=== PATIENT | male | born 1985 | race Caucasian/White ===

== ENCOUNTER 2016-04-13 11:59 | Inpatient (IN) | payer OTHER ==
[~2016-04-13] VITALS: Ht 185.4 cm; Wt 100.9 kg
[~2016-04-13 11:59] MED LIST: ALPRAZOLAM0.5 MG PO; ALPRAZOLAM2 MG PO; AMOX TR-K CLV1 EAC3 PO; ASCORBIC ACID100 MG PO; ASPIR-LOW81 MG PO; ATIVAN1 MG PO; Amoxicillin PO; B-100 COMPLEX1 EACH PO; B-100 COMPLEX100 MG PO; BACLOFEN10 MG PO; BACLOFEN20 MG PO; BACTRIM,SEPT1 TABLET PO; BISAC-EVAC10 MG PR; CARISOPRODOL350 MG PO; CEFTIN250 MG; CEFTIN250 MG PO; CEFTIN500 MG PO; CHILD ASPIRIN81 M1 PO; CIALIS10 MG PO; CIPRO500 MG PO; CLEOCIN300 MG PO; COLACE100 MG PO; COUMADIN4 MG PO; COUMADIN5 MG PO; CRANBERRY400 M1 PO; CYMBALTA20 MG PO; CYMBALTA30 MG PO; CYMBALTA60 MG PO; Coumadin,Jantoven PO; DAILY VALUE1 EACH PO; DAILY VITAMIN1 EAC8 PO; DIAZEPAM10 MG PO; DIAZEPAM5 MG PO; DULCOLAX10 MG PR; DUONEB 2.5-0.5 M3 ML IH; Diflucan PO; Dulcolax PR; FAMOTIDINE20 MG PO; FUROSEMIDE20 MG PO; GABAPENTIN100 MG PO; GABAPENTIN300 MG PO; INVANZ1 GM IM; JANTOVEN5 MG PO; KEFLEX500 MG PO; LASIX20 MG PO; LASIX40 MG PO; LEVAQUIN500 MG PO; LEVAQUIN750 MG PO; LIORESAL10 MG PO; LOVENOX80 MG/0.8 SC; LYRICA100 MG PO; LYRICA200 MG PO; LYRICA50 MG PO; LYRICA75 MG PO; Lioresal PO; Lovenox SC; MACROBID100 MG PO; MEDROL DOSEPAK4 MG PO; METHADONE5 MG PO; MIRALAX17 GM PO; MUCINEX600 MG PO; MULTI VITAMIN1 EACH PO; MULTI-VITAMIN1 EAC4 PO; Miralax, Glycolax PO; NEURONTIN100 MG PO; NEURONTIN300 MG PO; NICOTINE PATCH1 EAC2 TD; NITROFURANTOIN100 MG PO; Neurontin PO; OXYCODONE HCL15 MG PO; OXYCODONE HCL30 MG PO; OXYCODONE HCL5 MG PO; OXYCODONE HCL80 MG PO; OXYCONTIN15 MG PO; OXYCONTIN30 MG PO; OXYCONTIN40 MG PO; OXYCONTIN80 MG PO; OxyCONTIN PO; PANTOPRAZOLE SO40 MG PO; PHARMACIST FAV1 EACH PO; POLYETHYLENE GL17 GM PO; PROAIR HFA8.5 GM IH; PROVENTIL,2.5 MG/0.5 AEROSOL; Protonix PO; ROXICODONE30 MG PO; SERTRALINE HCL25 MG PO; SERTRALINE HCL50 MG PO; SILVADENE,SSD,T20 GM TP; SILVADENE20 GM TP; SOMA250 MG PO; SOMA350 MG PO; TEARS NATURALE-15 ML BOTH EYES; TIZANIDINE HCL4 M1 PO; TRAZODONE HCL50 MG PO; Tobramycin IV; VALIUM10 MG PO; VIAGRA100 MG PO; VITAMIN C500 M1 PO; VITAMIN D-3 401 EACH PO; Valium PO; WARFARIN SODIUM4 MG PO; WARFARIN SODIUM5 MG PO; XANAX2 MG PO; Xanax PO; ZANAFLEX2 MG PO; ZANAFLEX4 MG PO; ZITHROMAX500 MG PO; ZOLOFT100 MG PO; ZOLOFT25 MG PO; ZOLOFT50 MG PO; ZYVOX600 MG PO; oxyCODONE PO
[2016-04-13 14:36] LABS: EOSINOPHIL (%) 0.8 % (0-5); EOSINOPHIL COUNT 0.1 K/uL (0-0.3); HEMATOCRIT 41.5 % (38.0-50.0); IMMATURE GRANULOCYTE (%) 0.3 % (0.0-0.7); IMMATURE GRANULOCYTE COUNT 0.2 K/uL; LYMPHOCYTE COUNT 1.6 K/uL (1.0-2.8); MCH 29.9 PG (29.0-34.0); MCV 90.6 FL (86-99); MEAN PLAT.VOLUME 11.2 uM^3 (9.0-12.4); MONOCYTE (%) 11.8 % (3-12); MONOCYTE COUNT 0.8 K/uL (0-0.8); NEUTROPHIL (%) 62.5 % (45-76); NEUTROPHIL COUNT 4.1 K/uL (1.8-6.4); PLATELET COUNT 165 K/uL (156-360); RBC DIS.WIDTH-CV 15.6 % (11.8-14.6); RBC DIS.WIDTH-SD 50.4 % (39-53); RED BLOOD COUNT 4.58 M/uL (4.00-5.50); WHITE BLOOD COUNT 6.5 K/uL (4.1-10.2)
[2016-04-13 14:45] LABS: CHLORIDE 101 mEq/L (99-109); POTASSIUM 3.3 mEq/L (3.7-5.4); SODIUM 137 mEq/L (136-147)
[2016-04-13 14:47] LABS: GLUCOSE 97 mg/dL (70-99)
[2016-04-13 14:48] LABS: ANION GAP 11 MEQ/L (2-14)
[2016-04-13 14:51] LABS: GFR ESTIMATE (CALCULATED) > 59 mL/min/
[2016-04-13 14:52] LABS: UREA NITROGEN (BUN) 9 mg/dL (9-23)
[2016-04-13 15:58] LABS: ADD MIUA? YES; BILIRUBIN NEGATIVE; BLOOD MODERATE; COLOR YELLOW ((YELLOW)); GLUCOSE (STRIP) NEGATIVE; KETONES NEGATIVE; LEUKOCYTES MODERATE; NITRITE POSITIVE; PROTEIN (STRIP) TRACE; SPECIFIC GRAVITY 1.017 (1.000-1.030)
[2016-04-13 16:52] LABS: INTER. NORMALIZED RATIO 1.7; PROTHROMBIN TIME 17.4 (9.2-11.2)
[2016-04-13 17:18] LABS: BACTERIA 3+; CASTS NONE SEEN /LPF; CRYSTALS PRESENT; EPITHELIAL CELLS RARE; MUCUS 1+; OTHER YEAST W/HYPHAE; UCUL ADDED? YES
[2016-04-13 17:19] LABS: CALCIUM OXALATE CRYSTALS RARE
[2016-04-13 20:00] VITALS: BP 133/85
[2016-04-13] MEDS ORDERED: DULCOLAX10 MG PR (20:06)
[2016-04-14] VITALS (7 sets, daily range): BP systolic 100–130; BP diastolic 57–88
[2016-04-14 04:24] LABS: HEMATOCRIT 40.3 % (38.0-50.0); MCH 29.7 PG (29.0-34.0); MEAN PLAT.VOLUME 12.2 uM^3 (9.0-12.4); PLATELET COUNT 186 K/uL (156-360); RBC DIS.WIDTH-CV 15.1 % (11.8-14.6); RBC DIS.WIDTH-SD 49.5 % (39-53); RED BLOOD COUNT 4.48 M/uL (4.00-5.50); WHITE BLOOD COUNT 8.4 K/uL (4.1-10.2)
[2016-04-14 04:32] LABS: INTER. NORMALIZED RATIO 1.6; PROTHROMBIN TIME 16.1 (9.2-11.2)
[2016-04-14 04:41] LABS: CHLORIDE 106 mEq/L (99-109); SODIUM 140 mEq/L (136-147)
[2016-04-14 04:42] LABS: GLUCOSE 124 mg/dL (70-99)
[2016-04-14 04:44] LABS: ANION GAP 12 MEQ/L (2-14); POTASSIUM 4.4 mEq/L (3.7-5.4)
[2016-04-14 04:46] LABS: GFR ESTIMATE (CALCULATED) > 59 mL/min/
[2016-04-14 04:47] LABS: UREA NITROGEN (BUN) 9 mg/dL (9-23)
[2016-04-14 20:56] LABS: POINT-OF-CARE METER ID UU14149398
[2016-04-15 04:11] VITALS: BP 98/60
[2016-04-15 04:17] LABS: EOSINOPHIL (%) 0 % (0-5); HEMATOCRIT 38.9 % (38.0-50.0); IMMATURE GRANULOCYTE (%) 0.3 % (0.0-0.7); IMMATURE GRANULOCYTE COUNT 0.2 K/uL; LYMPHOCYTE COUNT 0.7 K/uL (1.0-2.8); MCH 29.4 PG (29.0-34.0); MCHC 32.4 G/DL (30.0-36.0); MCV 90.7 FL (86-99); MEAN PLAT.VOLUME 11.5 uM^3 (9.0-12.4); MONOCYTE (%) 6.6 % (3-12); MONOCYTE COUNT 0.5 K/uL (0-0.8); NEUTROPHIL (%) 83.7 % (45-76); NEUTROPHIL COUNT 5.9 K/uL (1.8-6.4); PLATELET COUNT 182 K/uL (156-360); RBC DIS.WIDTH-CV 15.1 % (11.8-14.6); RBC DIS.WIDTH-SD 49.6 % (39-53); RED BLOOD COUNT 4.29 M/uL (4.00-5.50)
[2016-04-15 04:27] LABS: INTER. NORMALIZED RATIO 2.1; PROTHROMBIN TIME 22.4 (9.2-11.2)
[2016-04-15 04:34] LABS: CHLORIDE 108 mEq/L (99-109); POTASSIUM 3.6 mEq/L (3.7-5.4); SODIUM 141 mEq/L (136-147)
[2016-04-15 04:36] LABS: GLUCOSE 144 mg/dL (70-99)
[2016-04-15 04:38] LABS: ANION GAP 6 MEQ/L (2-14)
[2016-04-15 04:39] LABS: TOTAL BILIRUBIN 0.2 mg/dL (0.0-1.0)
[2016-04-15 04:40] LABS: ALKALINE PHOSPHATASE 141 IU/L (3-129); GFR ESTIMATE (CALCULATED) > 59 mL/min/
[2016-04-15 04:41] LABS: UREA NITROGEN (BUN) 10 mg/dL (9-23)
[2016-04-15 07:55] VITALS: BP 115/77
[2016-04-15 08:00] VITALS: BP 115/77
[2016-04-15 11:11] VITALS: BP 118/76
[2016-04-15 15:39] VITALS: BP 126/94
[2016-04-16] VITALS: BP 120/67
[2016-04-16 06:27] LABS: EOSINOPHIL (%) 0.1 % (0-5); HEMATOCRIT 37.1 % (38.0-50.0); IMMATURE GRANULOCYTE (%) 0.4 % (0.0-0.7); LYMPHOCYTE COUNT 2.4 K/uL (1.0-2.8); MCH 29.8 PG (29.0-34.0); MCHC 32.1 G/DL (30.0-36.0); MCV 92.8 FL (86-99); MEAN PLAT.VOLUME 11.8 uM^3 (9.0-12.4); MONOCYTE (%) 7.9 % (3-12); MONOCYTE COUNT 0.7 K/uL (0-0.8); NEUTROPHIL (%) 62.9 % (45-76); NEUTROPHIL COUNT 5.3 K/uL (1.8-6.4); PLATELET COUNT 196 K/uL (156-360); RBC DIS.WIDTH-CV 15.6 % (11.8-14.6); RBC DIS.WIDTH-SD 52.7 % (39-53); WHITE BLOOD COUNT 8.4 K/uL (4.1-10.2)
[2016-04-16 06:41] LABS: INTER. NORMALIZED RATIO 2.3; PROTHROMBIN TIME 24.5 (9.2-11.2)
[2016-04-16 07:11] LABS: ALKALINE PHOSPHATASE 123 IU/L (3-129); ANION GAP 12 MEQ/L (2-14); CHLORIDE 103 MEQ/L (99-109); GFR ESTIMATE (CALCULATED) > 59 mL/min/; POTASSIUM 4.2 MEQ/L (3.7-5.4); SAMPLE HEMOLYSIS CHECK 0; SAMPLE ICTERIC CHECK 0; SAMPLE LIPEMIA CHECK 0; SODIUM 144 MEQ/L (136-147); TOTAL BILIRUBIN 0.2 MG/DL (0.0-1.0); UREA NITROGEN (BUN) 10 mg/dL (9-23)
[2016-04-16 07:12] LABS: GLUCOSE 76 mg/dL (70-99)
[2016-04-16 07:42] VITALS: BP 132/91
[2016-04-16 15:20] VITALS: BP 124/72
[2016-04-17 00:35] VITALS: BP 131/72
[2016-04-17 06:45] LABS: INTER. NORMALIZED RATIO 1.8; PROTHROMBIN TIME 18.3 (9.2-11.2)
[2016-04-17 08:25] VITALS: BP 100/53
[2016-04-17 15:11] VITALS: BP 119/71
[2016-04-17 23:20] VITALS: BP 102/57
[2016-04-18 06:10] LABS: INTER. NORMALIZED RATIO 1.7; PROTHROMBIN TIME 17.6 (9.2-11.2)
[2016-04-18 08:04] VITALS: BP 90/54
[2016-04-18 16:20] VITALS: BP 123/56
[2016-04-19] VITALS: BP 96/67
[2016-04-19 07:29] LABS: INTER. NORMALIZED RATIO 1.6; PROTHROMBIN TIME 16.5 (9.2-11.2)
[2016-04-19 08:06] VITALS: BP 119/68
[2016-04-19 12:17] LABS: HIV-1/2 AB/AG COMBO Nonreactive
[2016-04-19 15:53] VITALS: BP 119/68
[2016-04-19 20:52] VITALS: BP 122/78
[2016-04-19 23:25] VITALS: BP 117/83
[2016-04-20 01:20] VITALS: BP 115/74
[2016-04-20 03:41] LABS: AMPHETAMINES QUANT VALUE 0 NG/ML; BARBITUATES QUANT VALUE 0 NG/ML; BENZODIAZEPINES, URINE SCREEN POSITIVE (200 ng/mL); PHENCYCLIDINE QUANT VALUE 0 NG/ML
[2016-04-20 07:02] LABS: INTER. NORMALIZED RATIO 1.6; PROTHROMBIN TIME 16.5 (9.2-11.2)
[2016-04-20 08:19] VITALS: BP 107/57
[2016-04-20 08:27] LABS: MCH 29.7 PG (29.0-34.0); MCHC 31.8 G/DL (30.0-36.0); MCV 93.4 FL (86-99); MEAN PLAT.VOLUME 11.4 uM^3 (9.0-12.4); PLATELET COUNT 250 K/uL (156-360); RBC DIS.WIDTH-CV 15.7 % (11.8-14.6); RBC DIS.WIDTH-SD 53.3 % (39-53); RED BLOOD COUNT 4.07 M/uL (4.00-5.50)
[2016-04-20 09:06] LABS: ANION GAP 9 MEQ/L (2-14); CHLORIDE 102 MEQ/L (99-109); GFR ESTIMATE (CALCULATED) > 59 mL/min/; GLUCOSE 95 mg/dL (70-99); POTASSIUM 4.6 MEQ/L (3.7-5.4); SAMPLE HEMOLYSIS CHECK 0; SAMPLE ICTERIC CHECK 0; SAMPLE LIPEMIA CHECK 0; SODIUM 140 MEQ/L (136-147); UREA NITROGEN (BUN) 17 mg/dL (9-23)
[2016-04-20 17:07] VITALS: BP 104/22; BP 104/52
[2016-04-21 00:35] VITALS: BP 114/72
[2016-04-21 05:27] LABS: INTER. NORMALIZED RATIO 1.5; PROTHROMBIN TIME 15.9 (9.2-11.2)
[2016-04-21 08:06] VITALS: BP 140/85
[2016-04-21] MEDS ORDERED: SILVASORB1.5 OZ TP (14:09)
[2016-04-21] MEDS ORDERED: PREDNISONE10 MG PO (14:09)
[2016-04-21] MEDS ORDERED: AMOX TR-K CLV1 EAC4 PO (14:09)
== END 2016-04-21 14:58 | disposition home or self-care (01) | DRG 166 ==
LOC: EME → EDBD 11:59 → EDOF 14:28 → 4SOUTH 14:28 → EDOF 14:43 → 4SOUTH 19:16
PROVIDERS: Emergency Medicine; Hospitalist; Internal Medicine; Nurse Practitioner Adult Health; Physician Assistant
PROC: 0HBLXZZ Excision of Left Lower Leg Skin, External Approach (ICD-10-PCS; principal; 2016-04-20)
DX: J96.01 Acute respiratory failure with hypoxia (principal); J18.9 Pneumonia, unspecified organism; N39.0 Urinary tract infection, site not specified; L89.523 Pressure ulcer of left ankle, stage 3; B96.1 Klebsiella pneumoniae [K. pneumoniae] as the cause of diseases classified elsewhere; I25.2 Old myocardial infarction; J98.11 Atelectasis; Z86.718 Personal history of other venous thrombosis and embolism; Z79.01 Long term (current) use of anticoagulants; N31.9 Neuromuscular dysfunction of bladder, unspecified; G82.50 Quadriplegia, unspecified; B18.2 Chronic viral hepatitis C; F32.9 Major depressive disorder, single episode, unspecified; M62.838 Other muscle spasm; E87.6 Hypokalemia; F14.10 Cocaine abuse, uncomplicated; F12.10 Cannabis abuse, uncomplicated; Z86.73 Personal history of transient ischemic attack (TIA), and cerebral infarction without residual deficits; F17.210 Nicotine dependence, cigarettes, uncomplicated; Z71.6 Tobacco abuse counseling; Z95.1 Presence of aortocoronary bypass graft; Z66 Do not resuscitate; Z51.5 Encounter for palliative care; Z98.1 Arthrodesis status
CPT/HCPCS: 71010; 71020; 80048; 80053; 81003; 82948; 85025; 85027; 85610; 86703; 87040; 87077; 87086; 87186; 94010; 94640; 94640 76; 94667; 94668; 94760; 94799; 99202; 99281; 99285; J0456; J0696; J2930; J3480; J7030; J7050; J7512

== ENCOUNTER 2016-07-16 12:44 | Emergency (ER) | payer OTHER ==
[~2016-07-16] VITALS: Ht 182.9 cm; Wt 106.6 kg
[~2016-07-16 12:44] MED LIST changes: +AMOX TR-K CLV1 EAC4 PO; +PREDNISONE10 MG PO; +SILVASORB1.5 OZ TP
[2016-07-16 14:30] LABS: ADD MIUA? YES; BILIRUBIN NEGATIVE; BLOOD MODERATE; COLOR AMBER ((YELLOW)); GLUCOSE (STRIP) 150; KETONES NEGATIVE; LEUKOCYTES MODERATE; NITRITE POSITIVE; PROTEIN (STRIP) 100; SPECIFIC GRAVITY 1.015 (1.000-1.030); UROBILINOGEN 0.2 MG/DL (0.2-1.0)
[2016-07-16 14:57] LABS: BACTERIA 3+ /HPF; BUDDING YEAST 3+; EPITHELIAL CELLS RARE /HPF; MUCUS 1+ /LPF; RED BLOOD CELLS 15-20 /HPF (0-5); UCUL ADDED? YES; WHITE BLOOD CELLS 30-40 /HPF (0-5); WHITE BLOOD CELLS CLUMP FEW /HPF (0-5)
[2016-07-16] MEDS ORDERED: NARCAN4 MG NS (15:40)
[2016-07-16] MEDS ORDERED: KEFLEX500 MG PO (15:41)
[2016-07-16 16:00] VITALS: BP 103/70
== END 2016-07-16 16:18 | disposition home or self-care (01) ==
LOC: EME 12:44
PROVIDERS: Emergency Medicine
PROC: 0T2BX0Z Change Drainage Device in Bladder, External Approach (ICD-10-PCS; principal; 2016-07-16)
DX: T40.1X1A Poisoning by heroin, accidental (unintentional), initial encounter (principal); N39.0 Urinary tract infection, site not specified; Z93.50 Unspecified cystostomy status; G82.50 Quadriplegia, unspecified; G89.29 Other chronic pain; Z79.891 Long term (current) use of opiate analgesic; Z87.440 Personal history of urinary (tract) infections; Z95.1 Presence of aortocoronary bypass graft; Z79.01 Long term (current) use of anticoagulants; F17.200 Nicotine dependence, unspecified, uncomplicated
CPT/HCPCS: 74000; 81003; 87077; 87086; 87186; 99281; 99284

== ENCOUNTER 2016-07-27 14:08 | Inpatient (IN) | payer OTHER ==
[~2016-07-27] VITALS: Ht 185.4 cm; Wt 105.4 kg
[~2016-07-27 14:08] MED LIST changes: +NARCAN4 MG NS
[2016-07-27 14:47] LABS: EOSINOPHIL (%) 0.8 % (0-5); EOSINOPHIL COUNT 0.1 K/uL (0-0.3); HEMATOCRIT 43.5 % (38.0-50.0); IMMATURE GRANULOCYTE (%) 0.5 % (0.0-0.7); INSTRUMENT ABS NEUTROPHIL CT 4.4 K/uL; LYMPHOCYTE COUNT 1.2 K/uL (1.0-2.8); MCH 29.5 PG (29.0-34.0); MCHC 32.2 G/DL (30.0-36.0); MCV 91.8 FL (86-99); MEAN PLAT.VOLUME 11.1 uM^3 (9.0-12.4); MONOCYTE (%) 7.8 % (3-12); MONOCYTE COUNT 0.5 K/uL (0-0.8); NEUTROPHIL (%) 71.6 % (45-76); NEUTROPHIL COUNT 4.4 K/uL (1.8-6.4); PLATELET COUNT 205 K/uL (156-360); RBC DIS.WIDTH-CV 14.8 % (11.8-14.6); RBC DIS.WIDTH-SD 50.2 % (39-53); RED BLOOD COUNT 4.74 M/uL (4.00-5.50); WHITE BLOOD COUNT 6.2 K/uL (4.1-10.2)
[2016-07-27 14:55] LABS: CHLORIDE 106 mEq/L (99-109); POTASSIUM 3.8 mEq/L (3.7-5.4); SODIUM 141 mEq/L (136-147)
[2016-07-27 14:57] LABS: GLUCOSE 104 mg/dL (70-99)
[2016-07-27 14:59] LABS: ANION GAP 11 MEQ/L (2-14); TOTAL BILIRUBIN 0.3 mg/dL (0.0-1.0)
[2016-07-27 15:01] LABS: ALKALINE PHOSPHATASE 112 IU/L (3-129); GFR ESTIMATE (CALCULATED) > 59 mL/min/
[2016-07-27 15:02] LABS: UREA NITROGEN (BUN) 9 mg/dL (9-23)
[2016-07-27 15:36] LABS: D-DIMER ELISA 1.16 mg/L FEU (< 0.57)
[2016-07-27 15:47] LABS: BASE EXCESS 3.3 mEq/L (-3 to +3); BICARBONATE 27.8 mEq/L (22-26); CARBOXY HGB 2.6 % (0-5); METHEMOGLOBIN 0.6 % (0-1.5); PO2 65 mm Hg (80-100); pH 7.44 (7.35-7.45)
[2016-07-27 15:48] LABS: COMMENTS - BLOOD GASES A+C+; DEVICE NC; O2 FLOW 6 L/MIN; PCO2 41 mm Hg (35-45); SITE RR
[2016-07-27 20:00] VITALS: BP 112/67
[2016-07-27 20:16] VITALS: BP 112/67
[2016-07-27 21:04] LABS: INTER. NORMALIZED RATIO 1.3; PROTHROMBIN TIME 13.2 (9.2-11.2); PTT 30.9 (25-32)
[2016-07-28 08:52] VITALS: BP 142/81
[2016-07-28] MEDS ORDERED: CYMBALTA30 MG PO (13:31)
[2016-07-28] MEDS ORDERED: CYMBALTA60 MG PO (13:31)
[2016-07-28] MEDS ORDERED: BACLOFEN10 MG PO (13:32)
[2016-07-28] MEDS ORDERED: LASIX40 MG PO (13:32)
[2016-07-28] MEDS ORDERED: SOMA350 MG PO (13:32)
[2016-07-28] MEDS ORDERED: NEURONTIN300 MG PO (13:33)
[2016-07-28] MEDS ORDERED: COUMADIN4 MG PO (13:33)
[2016-07-28] MEDS ORDERED: TRAZODONE HCL50 MG PO (13:34)
[2016-07-28] MEDS ORDERED: ZANAFLEX4 MG PO (13:34)
[2016-07-28] MEDS ORDERED: LYRICA200 MG PO (13:35)
[2016-07-28] MEDS ORDERED: VALIUM10 MG PO (13:35)
[2016-07-28] MEDS ORDERED: OXYCODONE HCL10 MG PO (13:35)
[2016-07-28] MEDS ORDERED: XANAX2 MG PO (13:35)
[2016-07-28] MEDS ORDERED: DURAGESIC75 MCG TD (13:36)
[2016-07-28 16:24] VITALS: BP 141/80
[2016-07-28 19:24] LABS: INTER. NORMALIZED RATIO 1.5; PROTHROMBIN TIME 15.9 (9.2-11.2)
[2016-07-29 00:30] VITALS: BP 122/67
[2016-07-29 06:46] LABS: EOSINOPHIL (%) 0.3 % (0-5); HEMATOCRIT 38.2 % (38.0-50.0); IMMATURE GRANULOCYTE (%) 0.4 % (0.0-0.7); INSTRUMENT ABS NEUTROPHIL CT 4.3 K/uL; LYMPHOCYTE COUNT 1.7 K/uL (1.0-2.8); MCH 29.4 PG (29.0-34.0); MCHC 31.7 G/DL (30.0-36.0); MCV 92.9 FL (86-99); MONOCYTE (%) 9.1 % (3-12); MONOCYTE COUNT 0.6 K/uL (0-0.8); NEUTROPHIL (%) 64.8 % (45-76); NEUTROPHIL COUNT 4.3 K/uL (1.8-6.4); PLATELET COUNT 175 K/uL (156-360); RBC DIS.WIDTH-CV 15.2 % (11.8-14.6); RBC DIS.WIDTH-SD 51.8 % (39-53); RED BLOOD COUNT 4.11 M/uL (4.00-5.50); WHITE BLOOD COUNT 6.7 K/uL (4.1-10.2)
[2016-07-29 06:57] LABS: INTER. NORMALIZED RATIO 1.5; PROTHROMBIN TIME 15.8 (9.2-11.2)
[2016-07-29 07:08] LABS: ANION GAP 8 MEQ/L (2-14); CHLORIDE 110 MEQ/L (99-109); GFR ESTIMATE (CALCULATED) > 59 mL/min/; GLUCOSE 91 mg/dL (70-99); POTASSIUM 3.4 MEQ/L (3.7-5.4); SAMPLE HEMOLYSIS CHECK 0; SAMPLE ICTERIC CHECK 0; SAMPLE LIPEMIA CHECK 0; SODIUM 142 MEQ/L (136-147); UREA NITROGEN (BUN) 7 mg/dL (9-23)
[2016-07-29 08:07] VITALS: BP 120/67
[2016-07-29 16:52] VITALS: BP 121/69
[2016-07-30 00:12] VITALS: BP 133/79
[2016-07-30 06:25] LABS: INTER. NORMALIZED RATIO 1.6; PROTHROMBIN TIME 16.9 (9.2-11.2)
[2016-07-30 08:03] VITALS: BP 117/80
[2016-07-30 15:33] VITALS: BP 125/87
[2016-07-30] MEDS ORDERED: CEFDINIR300 MG PO (16:42)
[2016-07-30] MEDS ORDERED: DURAGESIC75 MCG TD (16:42)
[2016-07-30] MEDS ORDERED: OXYCODONE HCL10 MG PO (16:42)
[2016-07-31 00:34] VITALS: BP 130/72
[2016-07-31 07:30] VITALS: BP 106/68
[2016-07-31 10:57] LABS: HEMATOCRIT 39.2 % (38.0-50.0); MCH 29.5 PG (29.0-34.0); MCHC 31.6 G/DL (30.0-36.0); MCV 93.3 FL (86-99); MEAN PLAT.VOLUME 11.4 uM^3 (9.0-12.4); PLATELET COUNT 173 K/uL (156-360); RBC DIS.WIDTH-CV 15.3 % (11.8-14.6); RBC DIS.WIDTH-SD 52.7 % (39-53)
[2016-07-31 11:15] LABS: INTER. NORMALIZED RATIO 1.5; PROTHROMBIN TIME 15.1 (9.2-11.2)
[2016-07-31] MEDS ORDERED: VENTOLIN HFA18 GM IH (11:17)
[2016-07-31 11:20] LABS: ANION GAP 8 MEQ/L (2-14); CHLORIDE 105 MEQ/L (99-109); GFR ESTIMATE (CALCULATED) > 59 mL/min/; GLUCOSE 127 mg/dL (70-99); POTASSIUM 3.5 MEQ/L (3.7-5.4); SAMPLE HEMOLYSIS CHECK 0; SAMPLE ICTERIC CHECK 0; SAMPLE LIPEMIA CHECK 0; SODIUM 140 MEQ/L (136-147); UREA NITROGEN (BUN) 4 mg/dL (9-23)
[2016-07-31 11:32] VITALS: BP 119/81
[2016-07-31 15:32] VITALS: BP 132/56
== END 2016-07-31 15:35 | disposition home or self-care (01) | DRG 189 ==
LOC: EME → EDBD 14:08 → EME 14:08 → EDOF 18:24 → 5SOUTH 18:24
PROVIDERS: Emergency Medicine; Hospitalist; Internal Medicine
DX: J96.01 Acute respiratory failure with hypoxia (principal); J18.9 Pneumonia, unspecified organism; J69.0 Pneumonitis due to inhalation of food and vomit; G82.50 Quadriplegia, unspecified; G89.4 Chronic pain syndrome; F11.20 Opioid dependence, uncomplicated; F41.9 Anxiety disorder, unspecified; B19.20 Unspecified viral hepatitis C without hepatic coma; N31.9 Neuromuscular dysfunction of bladder, unspecified; W19.XXXS Unspecified fall, sequela; Z66 Do not resuscitate; Z51.5 Encounter for palliative care; F17.210 Nicotine dependence, cigarettes, uncomplicated; Z86.718 Personal history of other venous thrombosis and embolism; Z79.01 Long term (current) use of anticoagulants; I25.2 Old myocardial infarction; Z95.828 Presence of other vascular implants and grafts; Z95.1 Presence of aortocoronary bypass graft; Z86.73 Personal history of transient ischemic attack (TIA), and cerebral infarction without residual deficits
CPT/HCPCS: 36600; 71010; 71275; 80048; 80053; 80306 90; 82803; 85025; 85027; 85379; 85610; 85730; 87040; 87070; 87205; 87449; 94640; 94640 76; 94644; 94667; 94668; 94760; 94799; 99202; 99281; 99285; J0456; J0696; J1650; J7030; J7050; J7512; S0030

== ENCOUNTER 2016-08-09 10:59 | Inpatient (IN) | payer OTHER ==
[~2016-08-09] VITALS: Ht 185.4 cm; Wt 110.4 kg
[~2016-08-09 10:59] MED LIST changes: +CEFDINIR300 MG PO; +DURAGESIC75 MCG TD; +OXYCODONE HCL10 MG PO; +VENTOLIN HFA18 GM IH
[2016-08-09 12:23] LABS: ADD MEDTOX COMMENT Y; AMPHETAMINE NEGATIVE (500 ng/mL); BARBITURATES NEGATIVE (200 ng/mL); BENZODIAZEPINES PRESUMPTIVE POSITIVE (150 ng/mL); COCAINE PRESUMPTIVE POSITIVE (150 ng/mL); INTERNAL CONTROLS VALID? YES; METHADONE NEGATIVE (200 ng/mL); METHAMPHETAMINE NEGATIVE (500 ng/mL); OPIATES (MORPHINE) PRESUMPTIVE POSITIVE (100 ng/mL); OXYCODONE PRESUMPTIVE POSITIVE (100 ng/mL); PHENCYCLIDINE NEGATIVE (25 ng/mL); PROPOXYPHENE NEGATIVE (300 ng/mL); THC CANNABINOIDS NEGATIVE (50 ng/mL); TRICYCLIC ANTIDEPRESSANTS NEGATIVE (300 ng/mL)
[2016-08-09 12:29] LABS: INTER. NORMALIZED RATIO 1.3; PROTHROMBIN TIME 13.6 (9.2-11.2)
[2016-08-09 12:37] LABS: EOSINOPHIL (%) 1.8 % (0-5); EOSINOPHIL COUNT 0.1 K/uL (0-0.3); HEMATOCRIT 44.9 % (38.0-50.0); IMMATURE GRANULOCYTE (%) 0.4 % (0.0-0.7); INSTRUMENT ABS NEUTROPHIL CT 4.3 K/uL; LYMPHOCYTE COUNT 1.7 K/uL (1.0-2.8); MCH 29.6 PG (29.0-34.0); MCHC 31.6 G/DL (30.0-36.0); MCV 93.5 FL (86-99); MEAN PLAT.VOLUME 11.6 uM^3 (9.0-12.4); MONOCYTE (%) 9.2 % (3-12); MONOCYTE COUNT 0.6 K/uL (0-0.8); NEUTROPHIL (%) 63.2 % (45-76); NEUTROPHIL COUNT 4.3 K/uL (1.8-6.4); PLATELET COUNT 152 K/uL (156-360); RBC DIS.WIDTH-CV 14.1 % (11.8-14.6); WHITE BLOOD COUNT 6.8 K/uL (4.1-10.2)
[2016-08-09 12:38] LABS: ANION GAP 11 MEQ/L (2-14); CHLORIDE 103 MEQ/L (99-109); POTASSIUM 3.5 MEQ/L (3.7-5.4); SAMPLE HEMOLYSIS CHECK 0; SAMPLE ICTERIC CHECK 0; SAMPLE LIPEMIA CHECK 0; SODIUM 137 MEQ/L (136-147)
[2016-08-09 12:43] LABS: GFR ESTIMATE (CALCULATED) > 59 mL/min/; GLUCOSE 133 mg/dL (70-99); UREA NITROGEN (BUN) 8 mg/dL (9-23)
[2016-08-09 12:46] LABS: TROP-I INTERPRETATION NEGATIVE; TROPONIN-I < 0.01 ng/mL (0.0-0.30)
[2016-08-09 13:17] LABS: BENZODIAZEPINES, URINE SCREEN POSITIVE (200 ng/mL)
[2016-08-09] MEDS ORDERED: DURAGESIC75 MCG TD (18:02)
[2016-08-09] MEDS ORDERED: OXYCODONE HCL30 MG PO (18:02)
[2016-08-09] MEDS ORDERED: ALPRAZOLAM2 MG PO (18:03)
[2016-08-09 23:01] VITALS: BP 131/92
[2016-08-09 23:31] LABS: TROP-I INTERPRETATION NEGATIVE; TROPONIN-I < 0.01 ng/mL (0.0-0.30)
[2016-08-10] MEDS ORDERED: DULCOLAX10 MG PR (01:53)
[2016-08-10] MEDS ORDERED: MIRALAX17 GM PO (01:54)
[2016-08-10 03:10] LABS: ADD MIUA? YES; BILIRUBIN NEGATIVE; BLOOD SMALL; COLOR STRAW ((YELLOW)); GLUCOSE (STRIP) >=500; KETONES NEGATIVE; LEUKOCYTES NEGATIVE; NITRITE NEGATIVE; PROTEIN (STRIP) NEGATIVE; SPECIFIC GRAVITY 1.006 (1.000-1.030); UROBILINOGEN 0.2 MG/DL (0.2-1.0)
[2016-08-10 03:15] LABS: BACTERIA NONE SEEN /HPF; BUDDING YEAST 2+; EPITHELIAL CELLS RARE /HPF; MUCUS NONE SEEN /LPF; RED BLOOD CELLS 15-20 /HPF (0-5); WHITE BLOOD CELLS 0-5 /HPF (0-5)
[2016-08-10 03:17] LABS: INFLUENZA A VIRAL ANTIGEN NEGATIVE; INFLUENZA B VIRAL ANTIGEN NEGATIVE
[2016-08-10 04:00] VITALS: BP 137/64
[2016-08-10 08:07] VITALS: BP 135/70
[2016-08-10 08:36] LABS: INTERNAL CONTROL VALID? YES
[2016-08-10 10:20] LABS: EOSINOPHIL (%) 0 % (0-5); HEMATOCRIT 44.2 % (38.0-50.0); IMMATURE GRANULOCYTE (%) 0.6 % (0.0-0.7); INSTRUMENT ABS NEUTROPHIL CT 5.8 K/uL; LYMPHOCYTE COUNT 0.7 K/uL (1.0-2.8); MCH 29.5 PG (29.0-34.0); MCHC 31.7 G/DL (30.0-36.0); MCV 93.2 FL (86-99); MONOCYTE (%) 2.8 % (3-12); MONOCYTE COUNT 0.2 K/uL (0-0.8); NEUTROPHIL (%) 86.5 % (45-76); NEUTROPHIL COUNT 5.8 K/uL (1.8-6.4); RBC DIS.WIDTH-CV 13.8 % (11.8-14.6); RBC DIS.WIDTH-SD 47.7 % (39-53); RED BLOOD COUNT 4.74 M/uL (4.00-5.50); WHITE BLOOD COUNT 6.7 K/uL (4.1-10.2)
[2016-08-10 10:27] LABS: INTER. NORMALIZED RATIO 1.3; PROTHROMBIN TIME 13.4 (9.2-11.2)
[2016-08-10 10:48] LABS: ALKALINE PHOSPHATASE 122 IU/L (3-129); ANION GAP 10 MEQ/L (2-14); CHLORIDE 105 MEQ/L (99-109); GFR ESTIMATE (CALCULATED) > 59 mL/min/; GLUCOSE 182 mg/dL (70-99); POTASSIUM 4.2 MEQ/L (3.7-5.4); SAMPLE HEMOLYSIS CHECK 0; SAMPLE ICTERIC CHECK 0; SAMPLE LIPEMIA CHECK 0; SODIUM 136 MEQ/L (136-147); TOTAL BILIRUBIN 0.3 MG/DL (0.0-1.0); UREA NITROGEN (BUN) 8 mg/dL (9-23)
[2016-08-10 10:56] LABS: PLAT.SUFFICIENCY ADEQUATE; PLATELET COUNT 165 K/uL (156-360)
[2016-08-10 11:06] VITALS: BP 126/69
[2016-08-10 15:34] VITALS: BP 134/68
[2016-08-10 19:23] VITALS: BP 125/66
[2016-08-11 00:56] VITALS: BP 131/67
[2016-08-11 07:26] LABS: INTER. NORMALIZED RATIO 1.7; PROTHROMBIN TIME 17.6 (9.2-11.2)
[2016-08-11 08:09] VITALS: BP 144/86
[2016-08-11 12:48] VITALS: BP 136/85
[2016-08-11 15:43] VITALS: BP 138/92
[2016-08-11 21:14] VITALS: BP 140/89
[2016-08-11 23:47] VITALS: BP 148/94
[2016-08-12] VITALS (7 sets, daily range): BP systolic 97–146; BP diastolic 52–75
[2016-08-12 06:53] LABS: PROTHROMBIN TIME 21.2 (9.2-11.2)
[2016-08-13 03:40] VITALS: BP 126/65
[2016-08-13 06:45] LABS: INTER. NORMALIZED RATIO 1.7; PROTHROMBIN TIME 18.1 (9.2-11.2)
[2016-08-13 07:42] VITALS: BP 140/78
[2016-08-13 09:04] LABS: HEMATOCRIT 40.9 % (38.0-50.0); MCH 29.5 PG (29.0-34.0); MCHC 31.8 G/DL (30.0-36.0); MCV 92.7 FL (86-99); MEAN PLAT.VOLUME 11.7 uM^3 (9.0-12.4); PLATELET COUNT 176 K/uL (156-360); RBC DIS.WIDTH-CV 14.4 % (11.8-14.6); RBC DIS.WIDTH-SD 48.7 % (39-53); RED BLOOD COUNT 4.41 M/uL (4.00-5.50)
[2016-08-13 09:20] LABS: ANION GAP 11 MEQ/L (2-14); CHLORIDE 100 MEQ/L (99-109); GFR ESTIMATE (CALCULATED) > 59 mL/min/; GLUCOSE 134 mg/dL (70-99); POTASSIUM 3.5 MEQ/L (3.7-5.4); SAMPLE HEMOLYSIS CHECK 0; SAMPLE ICTERIC CHECK 0; SAMPLE LIPEMIA CHECK 0; SODIUM 139 MEQ/L (136-147); UREA NITROGEN (BUN) 13 mg/dL (9-23)
[2016-08-13 11:14] VITALS: BP 126/69
[2016-08-13 15:16] VITALS: BP 161/87
[2016-08-13 19:57] VITALS: BP 200/112
[2016-08-13 22:23] LABS: METH RESISTANT S AUREUS PCR NEGATIVE (NEGATIVE)
[2016-08-13 22:27] LABS: PROBE CHECK PASS; SPECIMEN PROCESSING CONTROL PASS
[2016-08-13 23:03] VITALS: BP 125/69
[2016-08-14 03:46] VITALS: BP 134/76
[2016-08-14 06:48] LABS: HEMATOCRIT 41.1 % (38.0-50.0); MCH 29.6 PG (29.0-34.0); MCHC 32.1 G/DL (30.0-36.0); MCV 92.2 FL (86-99); MEAN PLAT.VOLUME 11.5 uM^3 (9.0-12.4); PLATELET COUNT 184 K/uL (156-360); RBC DIS.WIDTH-CV 14.1 % (11.8-14.6); RBC DIS.WIDTH-SD 48.2 % (39-53); RED BLOOD COUNT 4.46 M/uL (4.00-5.50)
[2016-08-14 06:51] LABS: WHITE BLOOD COUNT 6.2 K/uL (4.1-10.2)
[2016-08-14 06:56] LABS: INTER. NORMALIZED RATIO 1.4; PROTHROMBIN TIME 14.1 (9.2-11.2)
[2016-08-14 07:21] LABS: ANION GAP 9 MEQ/L (2-14); CHLORIDE 102 MEQ/L (99-109); GFR ESTIMATE (CALCULATED) > 59 mL/min/; GLUCOSE 140 mg/dL (70-99); POTASSIUM 4.2 MEQ/L (3.7-5.4); SAMPLE HEMOLYSIS CHECK 0; SAMPLE ICTERIC CHECK 0; SAMPLE LIPEMIA CHECK 0; SODIUM 140 MEQ/L (136-147); UREA NITROGEN (BUN) 14 mg/dL (9-23)
[2016-08-14 07:53] VITALS: BP 143/73
[2016-08-14 11:39] VITALS: BP 128/81
[2016-08-14 19:48] VITALS: BP 121/80
[2016-08-15] VITALS (7 sets, daily range): BP systolic 120–151; BP diastolic 74–86
[2016-08-15 07:00] LABS: INTER. NORMALIZED RATIO 1.6
[2016-08-16 03:46] VITALS: BP 122/73
[2016-08-16 07:17] LABS: INTER. NORMALIZED RATIO 1.5; PROTHROMBIN TIME 15.7 (9.2-11.2)
[2016-08-16 07:27] VITALS: BP 130/90
[2016-08-16] MEDS ORDERED: PREDNISONE10 MG PO (11:00)
[2016-08-16] MEDS ORDERED: AMOX TR-K CLV1 EAC4 PO (11:00)
[2016-08-16] MEDS ORDERED: ALPRAZOLAM2 MG PO (11:00)
[2016-08-16 11:31] VITALS: BP 109/64
[2016-08-16] MEDS ORDERED: COUMADIN6 MG PO ×3 (15:04→15:11)
== END 2016-08-16 15:34 | disposition home or self-care (01) | DRG 193 ==
LOC: EME → EDBD 10:59 → EME 10:59 → EDOF 19:50 → 5SOUTH 19:50 → EDOF 20:27 → 5SOUTH 22:21
PROVIDERS: Emergency Medicine; Internal Medicine
DX: J15.3 Pneumonia due to streptococcus, group B (principal); J96.01 Acute respiratory failure with hypoxia; J98.11 Atelectasis; J98.09 Other diseases of bronchus, not elsewhere classified; E87.6 Hypokalemia; J44.1 Chronic obstructive pulmonary disease with (acute) exacerbation; G82.50 Quadriplegia, unspecified; Z66 Do not resuscitate; Z51.5 Encounter for palliative care; B19.20 Unspecified viral hepatitis C without hepatic coma; N31.9 Neuromuscular dysfunction of bladder, unspecified; M62.838 Other muscle spasm; G89.29 Other chronic pain; F17.210 Nicotine dependence, cigarettes, uncomplicated; W13 Fall from, out of or through building or structure; S14.109S Unspecified injury at unspecified level of cervical spinal cord, sequela; I25.2 Old myocardial infarction; Z86.718 Personal history of other venous thrombosis and embolism; Z79.01 Long term (current) use of anticoagulants; Z95.828 Presence of other vascular implants and grafts; Z95.1 Presence of aortocoronary bypass graft; Z88.1 Allergy status to other antibiotic agents; Z91.19 Patient's noncompliance with other medical treatment and regimen
CPT/HCPCS: 71010; 71250; 78582; 80048; 80053; 81003; 83880; 84484; 84999; 85025; 85027; 85610; 87070; 87116; 87205; 87206; 87449; 87502; 87641; 88108; 93005; 94010; 94640; 94640 76; 94667; 94668; 94799; 99202; 99281; 99285; A9540; A9567; J0456; J1650; J2250; J2310; J2543; J2930; J3010; J7030; J7050; J7512; J7644

== ENCOUNTER 2016-08-22 19:48 | Inpatient (IN) | payer OTHER ==
[~2016-08-22] VITALS: Ht 185.4 cm; Wt 111.7 kg
[~2016-08-22 19:48] MED LIST changes: +COUMADIN6 MG PO
[2016-08-22 21:12] LABS: CHLORIDE 103 mEq/L (99-109); POTASSIUM 3.5 mEq/L (3.7-5.4); SODIUM 135 mEq/L (136-147)
[2016-08-22 21:14] LABS: GLUCOSE 127 mg/dL (70-99)
[2016-08-22 21:15] LABS: ANION GAP 10 MEQ/L (2-14)
[2016-08-22 21:18] LABS: GFR ESTIMATE (CALCULATED) > 59 mL/min/
[2016-08-22 21:19] LABS: UREA NITROGEN (BUN) 8 mg/dL (9-23)
[2016-08-22 21:23] LABS: HEMATOCRIT 38.4 % (38.0-50.0); MCHC 33.1 G/DL (30.0-36.0); MCV 90.8 FL (86-99); MEAN PLAT.VOLUME 10.5 uM^3 (9.0-12.4); PLATELET COUNT 182 K/uL (156-360); RBC DIS.WIDTH-CV 14.9 % (11.8-14.6); RBC DIS.WIDTH-SD 48.5 % (39-53); RED BLOOD COUNT 4.23 M/uL (4.00-5.50)
[2016-08-22 22:28] LABS: ADD MIUA? YES; BILIRUBIN NEGATIVE; BLOOD SMALL; COLOR COLORLESS ((YELLOW)); GLUCOSE (STRIP) NEGATIVE; KETONES NEGATIVE; LEUKOCYTES TRACE; NITRITE NEGATIVE; PROTEIN (STRIP) NEGATIVE; SPECIFIC GRAVITY 1.002 (1.000-1.030); UROBILINOGEN 0.2 MG/DL (0.2-1.0)
[2016-08-22 22:52] LABS: BACTERIA NONE SEEN /HPF; CASTS NONE SEEN /LPF; CRYSTALS NONE SEEN; EPITHELIAL CELLS NONE SEEN /HPF; MUCUS NONE SEEN /LPF; RED BLOOD CELLS NONE SEEN /HPF (0-5); UCUL ADDED? NO; WHITE BLOOD CELLS RARE /HPF (0-5)
[2016-08-22] MEDS ORDERED: COUMADIN4 MG PO (23:22)
[2016-08-23 00:34] LABS: INTER. NORMALIZED RATIO 1.2; PROTHROMBIN TIME 12.5 (9.2-11.2)
[2016-08-23 01:10] VITALS: BP 117/69
[2016-08-23 05:09] LABS: METH RESISTANT S AUREUS PCR NEGATIVE (NEGATIVE)
[2016-08-23 05:13] LABS: PROBE CHECK PASS; SPECIMEN PROCESSING CONTROL PASS
[2016-08-23 07:08] VITALS: BP 128/77
[2016-08-23 07:37] LABS: INTER. NORMALIZED RATIO 1.2
[2016-08-23 07:40] LABS: EOSINOPHIL (%) 1.8 % (0-5); EOSINOPHIL COUNT 0.1 K/uL (0-0.3); HEMATOCRIT 36.2 % (38.0-50.0); IMMATURE GRANULOCYTE (%) 4.1 % (0.0-0.7); IMMATURE GRANULOCYTE COUNT 0.3 K/uL; LYMPHOCYTE COUNT 2.1 K/uL (1.0-2.8); MCH 29.9 PG (29.0-34.0); MCHC 31.8 G/DL (30.0-36.0); MEAN PLAT.VOLUME 10.9 uM^3 (9.0-12.4); MONOCYTE (%) 12.5 % (3-12); NEUTROPHIL (%) 53.2 % (45-76); PLATELET COUNT 163 K/uL (156-360); RBC DIS.WIDTH-CV 14.9 % (11.8-14.6); RED BLOOD COUNT 3.85 M/uL (4.00-5.50)
[2016-08-23 07:51] LABS: ALKALINE PHOSPHATASE 84 IU/L (3-129); ANION GAP 7 MEQ/L (2-14); CHLORIDE 109 MEQ/L (99-109); GFR ESTIMATE (CALCULATED) > 59 mL/min/; GLUCOSE 105 mg/dL (70-99); POTASSIUM 3.9 MEQ/L (3.7-5.4); SAMPLE HEMOLYSIS CHECK 0; SAMPLE ICTERIC CHECK 0; SAMPLE LIPEMIA CHECK 0; SODIUM 139 MEQ/L (136-147); TOTAL BILIRUBIN 0.4 MG/DL (0.0-1.0); UREA NITROGEN (BUN) 10 mg/dL (9-23)
[2016-08-23 07:57] LABS: WHITE BLOOD COUNT 7.6 K/uL (4.1-10.2)
[2016-08-23 15:20] VITALS: BP 137/91
[2016-08-24] VITALS (13 sets, daily range): BP systolic 82–133; BP diastolic 52–83
[2016-08-24 08:37] LABS: INTER. NORMALIZED RATIO 1.3; PROTHROMBIN TIME 12.9 (9.2-11.2)
[2016-08-24 10:34] LABS: EOSINOPHIL (%) 3.3 % (0-5); EOSINOPHIL COUNT 0.2 K/uL (0-0.3); HEMATOCRIT 37.4 % (38.0-50.0); IMMATURE GRANULOCYTE (%) 2.9 % (0.0-0.7); IMMATURE GRANULOCYTE COUNT 0.2 K/uL; INSTRUMENT ABS NEUTROPHIL CT 3.1 K/uL; LYMPHOCYTE COUNT 1.3 K/uL (1.0-2.8); MCHC 32.1 G/DL (30.0-36.0); MCV 93.5 FL (86-99); MEAN PLAT.VOLUME 10.7 uM^3 (9.0-12.4); MONOCYTE COUNT 0.5 K/uL (0-0.8); NEUTROPHIL COUNT 3.1 K/uL (1.8-6.4); PLATELET COUNT 143 K/uL (156-360); RBC DIS.WIDTH-CV 14.6 % (11.8-14.6); RBC DIS.WIDTH-SD 50.4 % (39-53)
[2016-08-24 10:35] LABS: WHITE BLOOD COUNT 5.2 K/uL (4.1-10.2)
[2016-08-24 10:51] LABS: ANION GAP 9 MEQ/L (2-14); CHLORIDE 109 MEQ/L (99-109); GFR ESTIMATE (CALCULATED) > 59 mL/min/; GLUCOSE 144 mg/dL (70-99); POTASSIUM 3.6 MEQ/L (3.7-5.4); SAMPLE HEMOLYSIS CHECK 0; SAMPLE ICTERIC CHECK 0; SAMPLE LIPEMIA CHECK 0; SODIUM 144 MEQ/L (136-147); UREA NITROGEN (BUN) 6 mg/dL (9-23)
[2016-08-24 11:37] LABS: HIV INDEX 0.08; HIV-1/2 AB/AG COMBO Nonreactive
[2016-08-25 06:24] LABS: EOSINOPHIL (%) 2.9 % (0-5); EOSINOPHIL COUNT 0.2 K/uL (0-0.3); HEMATOCRIT 36.9 % (38.0-50.0); IMMATURE GRANULOCYTE (%) 1.3 % (0.0-0.7); IMMATURE GRANULOCYTE COUNT 0.1 K/uL; INSTRUMENT ABS NEUTROPHIL CT 3.6 K/uL; LYMPHOCYTE COUNT 1.1 K/uL (1.0-2.8); MCH 29.6 PG (29.0-34.0); MCV 92.7 FL (86-99); MEAN PLAT.VOLUME 10.4 uM^3 (9.0-12.4); MONOCYTE (%) 9.6 % (3-12); MONOCYTE COUNT 0.5 K/uL (0-0.8); NEUTROPHIL (%) 65.2 % (45-76); NEUTROPHIL COUNT 3.6 K/uL (1.8-6.4); PLATELET COUNT 140 K/uL (156-360); RBC DIS.WIDTH-CV 14.7 % (11.8-14.6); RED BLOOD COUNT 3.98 M/uL (4.00-5.50); WHITE BLOOD COUNT 5.4 K/uL (4.1-10.2)
[2016-08-25 06:42] LABS: INTER. NORMALIZED RATIO 1.2; PROTHROMBIN TIME 12.7 (9.2-11.2)
[2016-08-25 06:54] LABS: ANION GAP 6 MEQ/L (2-14); CHLORIDE 109 MEQ/L (99-109); GFR ESTIMATE (CALCULATED) > 59 mL/min/; POTASSIUM 4.2 MEQ/L (3.7-5.4); SAMPLE HEMOLYSIS CHECK 0; SAMPLE ICTERIC CHECK 0; SAMPLE LIPEMIA CHECK 0; SODIUM 143 MEQ/L (136-147); UREA NITROGEN (BUN) 8 mg/dL (9-23)
[2016-08-25 06:58] VITALS: BP 110/62
[2016-08-25 07:01] LABS: GLUCOSE 88 mg/dL (70-99)
[2016-08-25 15:13] VITALS: BP 120/86
[2016-08-25 23:48] VITALS: BP 107/62
[2016-08-26 05:03] VITALS: BP 113/70
[2016-08-26 08:38] LABS: INTER. NORMALIZED RATIO 1.4; PROTHROMBIN TIME 14.2 (9.2-11.2)
[2016-08-26] MEDS ORDERED: LOVENOX100 MG/1 M SC (09:31)
[2016-08-26 10:03] VITALS: BP 95/57
[2016-08-26] MEDS ORDERED: COUMADIN5 MG PO (10:21)
== END 2016-08-26 15:30 | disposition home or self-care (01) | DRG 864 ==
LOC: EME → EDBD 19:48 → EME 19:48 → EDOF 23:27 → 5EAST 23:27
PROVIDERS: Emergency Medicine; Internal Medicine
DX: R50.9 Fever, unspecified (principal); L89.523 Pressure ulcer of left ankle, stage 3; E87.2 Acidosis; G82.50 Quadriplegia, unspecified; N31.9 Neuromuscular dysfunction of bladder, unspecified; B18.2 Chronic viral hepatitis C; K59.00 Constipation, unspecified; F17.210 Nicotine dependence, cigarettes, uncomplicated; Z86.718 Personal history of other venous thrombosis and embolism; Z79.01 Long term (current) use of anticoagulants; Z95.828 Presence of other vascular implants and grafts; I25.2 Old myocardial infarction; Z95.1 Presence of aortocoronary bypass graft; Z22.8 Carrier of other infectious diseases
CPT/HCPCS: 71010; 74176; 80048; 80053; 81003; 83605; 85025; 85027; 85610; 86703; 87040; 87086; 87106; 87641; 99281; 99285; J1644; J1650; J1885; J2543; J7030; J7050; J7120

== ENCOUNTER 2016-10-09 16:02 | Inpatient (IN) | payer OTHER ==
[~2016-10-09] VITALS: Ht 185.4 cm; Wt 115.2 kg
[~2016-10-09 16:02] MED LIST changes: +LOVENOX100 MG/1 M SC
[2016-10-09 16:27] LABS: BASE EXCESS 3.3 mEq/L (-3 to +3); BICARBONATE 29.1 mEq/L (22-26); CARBOXY HGB 2.7 % (0-5); METHEMOGLOBIN 0.8 % (0-1.5); pH 7.39 (7.35-7.45)
[2016-10-09 16:28] LABS: COMMENTS - BLOOD GASES A+C+; DEVICE NRBM; O2 FLOW 15 L/MIN; PCO2 48 mm Hg (35-45); PO2 85 mm Hg (80-100); SITE RR
[2016-10-09 17:01] LABS: EOSINOPHIL (%) 0.7 % (0-5); EOSINOPHIL COUNT 0.1 K/uL (0-0.3); HEMATOCRIT 41.7 % (38.0-50.0); IMMATURE GRANULOCYTE (%) 0.7 % (0.0-0.7); IMMATURE GRANULOCYTE COUNT 0.1 K/uL; INSTRUMENT ABS NEUTROPHIL CT 6.2 K/uL; LYMPHOCYTE COUNT 0.7 K/uL (1.0-2.8); MCH 29.5 PG (29.0-34.0); MCHC 32.4 G/DL (30.0-36.0); MEAN PLAT.VOLUME 10.6 uM^3 (9.0-12.4); MONOCYTE (%) 7.2 % (3-12); MONOCYTE COUNT 0.5 K/uL (0-0.8); NEUTROPHIL (%) 82.3 % (45-76); NEUTROPHIL COUNT 6.2 K/uL (1.8-6.4); PLATELET COUNT 174 K/uL (156-360); RBC DIS.WIDTH-CV 15.1 % (11.8-14.6); RBC DIS.WIDTH-SD 50.3 % (39-53); RED BLOOD COUNT 4.58 M/uL (4.00-5.50); WHITE BLOOD COUNT 7.6 K/uL (4.1-10.2)
[2016-10-09 17:10] LABS: CHLORIDE 101 mEq/L (99-109); INTER. NORMALIZED RATIO 1.5; POTASSIUM 3.2 mEq/L (3.7-5.4); PROTHROMBIN TIME 15.5 (9.2-11.2); SODIUM 137 mEq/L (136-147)
[2016-10-09 17:12] LABS: GLUCOSE 144 mg/dL (70-99)
[2016-10-09 17:13] LABS: ANION GAP 12 MEQ/L (2-14)
[2016-10-09 17:15] LABS: GFR ESTIMATE (CALCULATED) > 59 mL/min/
[2016-10-09 17:16] LABS: UREA NITROGEN (BUN) 11 mg/dL (9-23)
[2016-10-09 17:22] LABS: TROP-I INTERPRETATION NEGATIVE; TROPONIN-I < 0.01 ng/mL (0.0-0.30)
[2016-10-09 19:08] LABS: BASE EXCESS 2.1 mEq/L (-3 to +3); BICARBONATE 28.2 mEq/L (22-26); CARBOXY HGB 2.7 % (0-5); COMMENTS - BLOOD GASES C+; DEVICE 980; FI02 100 %; MECHANICAL RATE 16 resp/min; METHEMOGLOBIN 0.5 % (0-1.5); MODE AC; PCO2 50 mm Hg (35-45); PEEP 15 CM/H20; PO2 66 mm Hg (80-100); SITE RR; TIDAL VOLUME 500 ML; TOTAL RESP RATE 17 resp/min; pH 7.36 (7.35-7.45)
[2016-10-09 21:29] VITALS: BP 164/91
[2016-10-09 22:16] LABS: SAMPLE HEMOLYSIS CHECK 0; SAMPLE ICTERIC CHECK 0; SAMPLE LIPEMIA CHECK 0
[2016-10-09 22:22] LABS: TRIGLYCERIDES 98 MG/DL (Normal: <150)
[2016-10-09 22:31] LABS: ADD MIUA? YES; BILIRUBIN NEGATIVE; BLOOD MODERATE; COLOR YELLOW ((YELLOW)); GLUCOSE (STRIP) NEGATIVE; KETONES NEGATIVE; LEUKOCYTES LARGE; NITRITE POSITIVE; PROTEIN (STRIP) NEGATIVE; SPECIFIC GRAVITY 1.009 (1.000-1.030); UROBILINOGEN 0.2 MG/DL (0.2-1.0)
[2016-10-09 22:48] LABS: WHITE BLOOD CELLS 15-20 /HPF (0-5)
[2016-10-09 22:49] LABS: EPITHELIAL CELLS 3+ /HPF
[2016-10-09 22:50] LABS: BACTERIA 2+ /HPF; HYALINE CASTS RARE /LPF; UCUL ADDED? YES
[2016-10-09 22:52] LABS: MUCUS TRACE /LPF
[2016-10-09 22:53] LABS: ADD MEDTOX COMMENT Y; AMPHETAMINE NEGATIVE (500 ng/mL); BARBITURATES NEGATIVE (200 ng/mL); BENZODIAZEPINES PRESUMPTIVE POSITIVE (150 ng/mL); COCAINE PRESUMPTIVE POSITIVE (150 ng/mL); INTERNAL CONTROLS VALID? YES; METHADONE NEGATIVE (200 ng/mL); METHAMPHETAMINE NEGATIVE (500 ng/mL); OPIATES (MORPHINE) NEGATIVE (100 ng/mL); OXYCODONE PRESUMPTIVE POSITIVE (100 ng/mL); PHENCYCLIDINE NEGATIVE (25 ng/mL); PROPOXYPHENE NEGATIVE (300 ng/mL); THC CANNABINOIDS NEGATIVE (50 ng/mL); TRICYCLIC ANTIDEPRESSANTS NEGATIVE (300 ng/mL)
[2016-10-09 23:14] LABS: METH RESISTANT S AUREUS PCR NEGATIVE (NEGATIVE)
[2016-10-09 23:17] LABS: PROBE CHECK PASS; SPECIMEN PROCESSING CONTROL PASS
[2016-10-10] VITALS (17 sets, daily range): BP systolic 93–128; BP diastolic 51–80
[2016-10-10 01:36] LABS: BENZODIAZEPINES, URINE SCREEN POSITIVE (200 ng/mL)
[2016-10-10 10:24] LABS: EOSINOPHIL (%) 1.4 % (0-5); EOSINOPHIL COUNT 0.1 K/uL (0-0.3); HEMATOCRIT 34.6 % (38.0-50.0); IMMATURE GRANULOCYTE (%) 0.8 % (0.0-0.7); IMMATURE GRANULOCYTE COUNT 0.1 K/uL; INSTRUMENT ABS NEUTROPHIL CT 5.2 K/uL; LYMPHOCYTE COUNT 0.5 K/uL (1.0-2.8); MCH 29.3 PG (29.0-34.0); MCHC 31.8 G/DL (30.0-36.0); MEAN PLAT.VOLUME 10.3 uM^3 (9.0-12.4); MONOCYTE (%) 8.4 % (3-12); MONOCYTE COUNT 0.5 K/uL (0-0.8); NEUTROPHIL (%) 80.6 % (45-76); NEUTROPHIL COUNT 5.2 K/uL (1.8-6.4); PLATELET COUNT 146 K/uL (156-360); RBC DIS.WIDTH-CV 14.7 % (11.8-14.6); RBC DIS.WIDTH-SD 49.8 % (39-53); RED BLOOD COUNT 3.76 M/uL (4.00-5.50); WHITE BLOOD COUNT 6.4 K/uL (4.1-10.2)
[2016-10-10 10:32] LABS: INTER. NORMALIZED RATIO 1.4; PROTHROMBIN TIME 14.6 (9.2-11.2)
[2016-10-10 10:54] LABS: ANION GAP 6 MEQ/L (2-14); CHLORIDE 107 MEQ/L (99-109); GFR ESTIMATE (CALCULATED) > 59 mL/min/; GLUCOSE 115 mg/dL (70-99); POTASSIUM 3.6 MEQ/L (3.7-5.4); SAMPLE HEMOLYSIS CHECK 0; SAMPLE ICTERIC CHECK 0; SAMPLE LIPEMIA CHECK 0; SODIUM 140 MEQ/L (136-147); UREA NITROGEN (BUN) 6 mg/dL (9-23)
[2016-10-10] MEDS ORDERED: COUMADIN4 MG PO (13:44)
[2016-10-11] VITALS (24 sets, daily range): BP systolic 87–125; BP diastolic 48–79
[2016-10-11 06:47] LABS: VANCOMYCIN, TROUGH 54.3 MCG/ML (10-20)
[2016-10-11 10:14] LABS: INTER. NORMALIZED RATIO 1.6; PROTHROMBIN TIME 16.4 (9.2-11.2)
[2016-10-11 18:43] LABS: EOSINOPHIL (%) 2.4 % (0-5); EOSINOPHIL COUNT 0.2 K/uL (0-0.3); HEMATOCRIT 30.4 % (38.0-50.0); IMMATURE GRANULOCYTE (%) 0.5 % (0.0-0.7); INSTRUMENT ABS NEUTROPHIL CT 4.9 K/uL; LYMPHOCYTE COUNT 0.7 K/uL (1.0-2.8); MCH 30.1 PG (29.0-34.0); MCHC 32.9 G/DL (30.0-36.0); MCV 91.6 FL (86-99); MEAN PLAT.VOLUME 10.4 uM^3 (9.0-12.4); MONOCYTE COUNT 0.4 K/uL (0-0.8); NEUTROPHIL (%) 78.8 % (45-76); NEUTROPHIL COUNT 4.9 K/uL (1.8-6.4); PLATELET COUNT 172 K/uL (156-360); RBC DIS.WIDTH-SD 50.2 % (39-53); RED BLOOD COUNT 3.32 M/uL (4.00-5.50); WHITE BLOOD COUNT 6.3 K/uL (4.1-10.2)
[2016-10-11 18:57] LABS: ANION GAP 9 MEQ/L (2-14); CHLORIDE 109 MEQ/L (99-109); MAGNESIUM 1.9 mg/dl (1.3-2.7); SAMPLE HEMOLYSIS CHECK 0; SAMPLE ICTERIC CHECK 0; SAMPLE LIPEMIA CHECK 0; SODIUM 144 MEQ/L (136-147)
[2016-10-11 19:03] LABS: GFR ESTIMATE (CALCULATED) > 59 mL/min/; GLUCOSE 92 mg/dL (70-99); UREA NITROGEN (BUN) 5 mg/dL (9-23)
[2016-10-12] VITALS (24 sets, daily range): BP systolic 109–158; BP diastolic 65–98
[2016-10-12 06:02] LABS: EOSINOPHIL (%) 1.5 % (0-5); EOSINOPHIL COUNT 0.1 K/uL (0-0.3); HEMATOCRIT 32.7 % (38.0-50.0); IMMATURE GRANULOCYTE (%) 0.6 % (0.0-0.7); INSTRUMENT ABS NEUTROPHIL CT 5.2 K/uL; MCH 28.9 PG (29.0-34.0); MCHC 31.8 G/DL (30.0-36.0); MCV 90.8 FL (86-99); MEAN PLAT.VOLUME 10.6 uM^3 (9.0-12.4); MONOCYTE (%) 7.3 % (3-12); MONOCYTE COUNT 0.5 K/uL (0-0.8); NEUTROPHIL (%) 75.6 % (45-76); NEUTROPHIL COUNT 5.2 K/uL (1.8-6.4); PLATELET COUNT 182 K/uL (156-360); RBC DIS.WIDTH-SD 50.3 % (39-53); WHITE BLOOD COUNT 6.9 K/uL (4.1-10.2)
[2016-10-12 06:28] LABS: ANION GAP 10 MEQ/L (2-14); CHLORIDE 109 MEQ/L (99-109); GFR ESTIMATE (CALCULATED) > 59 mL/min/; GLUCOSE 84 mg/dL (70-99); SAMPLE HEMOLYSIS CHECK 0; SAMPLE ICTERIC CHECK 0; SAMPLE LIPEMIA CHECK 0; SODIUM 144 MEQ/L (136-147); UREA NITROGEN (BUN) 5 mg/dL (9-23)
[2016-10-12 06:29] LABS: MAGNESIUM 2.3 mg/dl (1.3-2.7); POTASSIUM 3.7 MEQ/L (3.7-5.4)
[2016-10-12 10:56] LABS: INTER. NORMALIZED RATIO 1.6; PROTHROMBIN TIME 16.4 (9.2-11.2)
[2016-10-13] VITALS (24 sets, daily range): BP systolic 118–163; BP diastolic 55–97
[2016-10-13 06:03] LABS: EOSINOPHIL (%) 0.3 % (0-5); HEMATOCRIT 29.9 % (38.0-50.0); IMMATURE GRANULOCYTE (%) 1.5 % (0.0-0.7); IMMATURE GRANULOCYTE COUNT 0.1 K/uL; INSTRUMENT ABS NEUTROPHIL CT 6.8 K/uL; LYMPHOCYTE COUNT 1.2 K/uL (1.0-2.8); MCH 30.2 PG (29.0-34.0); MCHC 33.4 G/DL (30.0-36.0); MCV 90.3 FL (86-99); MEAN PLAT.VOLUME 10.8 uM^3 (9.0-12.4); MONOCYTE (%) 6.9 % (3-12); MONOCYTE COUNT 0.6 K/uL (0-0.8); NEUTROPHIL (%) 77.2 % (45-76); NEUTROPHIL COUNT 6.8 K/uL (1.8-6.4); PLATELET COUNT 181 K/uL (156-360); RBC DIS.WIDTH-SD 49.4 % (39-53); RED BLOOD COUNT 3.31 M/uL (4.00-5.50); WHITE BLOOD COUNT 8.8 K/uL (4.1-10.2)
[2016-10-13 06:44] LABS: ANION GAP 7 MEQ/L (2-14); CHLORIDE 107 MEQ/L (99-109); GFR ESTIMATE (CALCULATED) > 59 mL/min/; MAGNESIUM 2.2 mg/dl (1.3-2.7); POTASSIUM 3.4 MEQ/L (3.7-5.4); SAMPLE HEMOLYSIS CHECK 0; SAMPLE ICTERIC CHECK 0; SAMPLE LIPEMIA CHECK 0; SODIUM 144 MEQ/L (136-147); UREA NITROGEN (BUN) 10 mg/dL (9-23)
[2016-10-13 06:48] LABS: GLUCOSE 120 mg/dL (70-99)
[2016-10-13 09:09] LABS: INTER. NORMALIZED RATIO 1.7; PROTHROMBIN TIME 17.9 (9.2-11.2)
[2016-10-14] VITALS (13 sets, daily range): BP systolic 00–123; BP diastolic 00–74
== END 2016-10-15 11:27 | DRG 871 ==
LOC: EME 16:02 → 4WEST 18:44 → EDOF 18:44 → 4WEST 20:24 → 5EAST 10-14 16:13
PROVIDERS: Emergency Medicine; Internal Medicine Critical Care Medicine; Internal Medicine Nephrology; Internal Medicine Pulmonary Disease
PROC: 05HM33Z Insertion of Infusion Device into Right Internal Jugular Vein, Percutaneous Approach (ICD-10-PCS; principal; 2016-10-09)
PROC: 5A1945Z Respiratory Ventilation, 24-96 Consecutive Hours (ICD-10-PCS; principal; 2016-10-09)
PROC: 0BH17EZ Insertion of Endotracheal Airway into Trachea, Via Natural or Artificial Opening (ICD-10-PCS; principal; 2016-10-09)
PROC: B543ZZA Ultrasonography of Right Jugular Veins, Guidance (ICD-10-PCS; principal; 2016-10-09)
PROC: 0BJ08ZZ Inspection of Tracheobronchial Tree, Via Natural or Artificial Opening Endoscopic (ICD-10-PCS; 2016-10-11)
DX: A41.9 Sepsis, unspecified organism (principal); J18.9 Pneumonia, unspecified organism; J96.01 Acute respiratory failure with hypoxia; E87.6 Hypokalemia; G82.50 Quadriplegia, unspecified; G62.9 Polyneuropathy, unspecified; E83.39 Other disorders of phosphorus metabolism; N31.9 Neuromuscular dysfunction of bladder, unspecified; R65.20 Severe sepsis without septic shock; J98.11 Atelectasis; L89.892 Pressure ulcer of other site, stage 2; L89.891 Pressure ulcer of other site, stage 1; F32.9 Major depressive disorder, single episode, unspecified; F41.9 Anxiety disorder, unspecified; I25.10 Atherosclerotic heart disease of native coronary artery without angina pectoris; J45.909 Unspecified asthma, uncomplicated; B19.20 Unspecified viral hepatitis C without hepatic coma; D64.9 Anemia, unspecified; K59.00 Constipation, unspecified; Z95.1 Presence of aortocoronary bypass graft; Z51.5 Encounter for palliative care; T17.990A Other foreign object in respiratory tract, part unspecified in causing asphyxiation, initial encounter; E66.9 Obesity, unspecified; Z68.32 Body mass index [BMI] 32.0-32.9, adult; Z87.891 Personal history of nicotine dependence; I25.2 Old myocardial infarction; Z86.73 Personal history of transient ischemic attack (TIA), and cerebral infarction without residual deficits; Z87.442 Personal history of urinary calculi; Z87.440 Personal history of urinary (tract) infections; Z86.718 Personal history of other venous thrombosis and embolism
CPT/HCPCS: 36600; 71010; 80048; 80202; 81003; 82550; 82550 91; 82803; 83605; 83735; 84100; 84478; 84484; 84999; 85014; 85018; 85025; 85610; 87040; 87070; 87077; 87086; 87147; 87186; 87205; 87641; 93005; 94002; 94003; 94640; 94640 76; 94667; 94668; 94799; 99202; 99281; 99285; J0330; J2060; J2250; J2270; J2543; J2704; J3010; J3260; J3370; J3475; J3480; J7030; J7050; J7608; S0028